=== PATIENT | male | born 1980 | race Caucasian/White ===

== ENCOUNTER 2016-10-06 10:09 | Outpatient (CLI) | payer MEDICAID | END 2016-10-06 10:10 | disposition home or self-care (01) | DX: Z79.899 Other long term (current) drug therapy (principal); Z13.9 Encounter for screening, unspecified ==

== ENCOUNTER 2017-02-26 20:30 | Emergency (ER) | payer MEDICAID ==
[2017-02-26] MEDS ORDERED: CYCLOBENZAPRINE 10 MG Prepack 2 PO PRN (22:22)
[2017-02-26] MEDS ORDERED: KETOROLAC 60 MG/2 ML VIAL IM STA (22:22)
[2017-02-26] MEDS ORDERED: HYDROcod/ACET 5/325 Prepack 6 PO STA (22:22)
[2017-02-26] MEDS ORDERED: HYDROcod/ACET 5/325 Prepack 6 PO ONE (22:24)
[2017-02-26] MEDS ORDERED: CYCLOBENZAPRINE 10 MG Prepack 2 PO ONE (22:24)
[2017-02-26] MEDS ORDERED: KETOROLAC 60 MG/2 ML VIAL ONE (22:24)
--- NOTE | 2017-02-26 22:29 | ED Physician Documentation ---
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 There is no associated radiation into the right leg, no weakness, numbness, urinary complaint, incontinence, saddle anesthesia, or fever.) Review of Systems Constitutional: denies: Fever, Chills Respiratory: denies: Dyspnea, Cough GI: denies: Abdominal Pain, Nausea, Vomiting PD PAST MEDICAL HISTORY - Past Medical History Cardiovascular: Hypertension Psych: ADD/ADHD - Past Surgical History Past Surgical History: No - Present Medications Home Medications: Ambulatory Orders Medication Instructions Recorded Confirmed HYDROcod/ACETAM 5/325 [[place] 5/325] 1 - 2 ea PO Q6H PRN #10 tablet 05/31/16 Methylphenidate HCl [Concerta] 30 mg PO DAILY 05/31/16 05/31/16 Sertraline [Zoloft] 100 mg PO DAILY 05/31/16 05/31/16 cloNIDine [Catapres] 0.3 mg PO DAILY 05/31/16 05/31/16 Cyclobenzaprine [Flexeril] 10 mg PO TID PRN #20 tablet 02/26/17 HYDROcod/ACETAM 5/325 [[place]iffard 5/325] 1 - 2 ea PO Q6H PRN #10 tablet 02/26/17 Ibuprofen [Motrin] 800 mg PO Q8H PRN #30 tablet 02/26/17 - Allergies Allergies/Adverse Reactions: Allergies Allergy/AdvReac Type Severity Reaction Status Date / Time No Known Drug Allergies Allergy Verified 02/26/17 20:46 - Social History Does the pt smoke?: No Smoking Status: Never smoker Does the pt drink ETOH?: Yes Does the pt have substance abuse?: No - Immunizations Immunizations are current?: Yes PD ED PE NORMAL - Vitals Vital signs reviewed: Yes - General General: Alert and oriented X 3, No acute distress - Abdomen Abdomen: Normal bowel sounds, Soft, Non tender, No organomegaly - Back Back: Other (Muscular tenderness of the right low back without midline tenderness of the spine. The patient has equal and normal Achilles and patellar reflexes bilaterally. Normal sensation in all areas of the legs. Patient denies saddle anesthesia. Normal strength in flexion-extension at the ankles, knees, and flexion of the hips.) - Neuro Neuro: Alert and oriented X 3, Normal speech - Psych Psych: Normal mood, Normal affect Results - Vitals Vitals: Vital Signs - 24 hr 02/26/17 20:43 Temperature 36.9 C Heart Rate 100 Respiratory 18 Rate Blood Pressure 157/112 H O2 Saturation 99 Oxygen O2 Source Room air PD MEDICAL DECISION MAKING - ED course ED course: This patient has seemingly uncomplicated musculoskeletal back pain. The patient has no "red flags." Specifically denies IV drug use, fevers, incontinence, saddle anesthesia. Spinal epidural abscess was considered, given that the patient has no fever, is not diabetic, has no spinal tenderness, does not use IV drugs, and has no bilateral neurologic symptoms, the diagnosis of spinal epidural abscess is considered exceedingly unlikely. Departure - Departure Disposition: Home, Self Care Clinical Impression: Back pain Qualifiers: Back pain location: low back pain Chronicity: acute Back pain laterality: right Sciatica presence: without sciatica Qualified Code(s): M54.5 - Low back pain Condition: Good Record reviewed to determine appropriate education?: Yes Instructions: ED Neck Back Pain General Prescriptions: Cyclobenzaprine [Flexeril] 10 mg PO TID PRN #20 tablet PRN Reason: Pain Ibuprofen [Motrin] 800 mg PO Q8H PRN #30 tablet PRN Reason: PAIN &/OR FEVER HYDROcod/ACETAM 5/325 [Piffard 5/325] 1 - 2 ea PO Q6H PRN #10 tablet PRN Reason: Pain Comments: Call your doctor to arrange a follow-up appointment, make the next available appointment. In the interim, return anytime if worse or if new symptoms develop. Do not drink or drive while taking narcotic pain medication. Note that many narcotic pain relievers also contain Tylenol/acetaminophen. Please ensure that your total dose of acetaminophen from all sources does not exceed 3 g (3000 mg) per day. You may get constipated while on this medication. Take a stool softener such as Colace twice a day while you are on it. Also add an [id number] laxative such as senna or MiraLAX on any day that you do not have a bowel movement. If you received a narcotic pain medication or sedative while in the emergency department, do not drive for the next 24 hours. Your blood pressure was elevated today on check into the emergency department. This does not mean that you have hypertension, it is a common phenomenon to come to the emergency department and have elevated blood pressure. I recommend that she see her primary care physician within the week to have it rechecked when you are feeling better. Forms: Activity restrictions
[2017-02-26 22:44] VITALS: BP 130/86
== END 2017-02-26 22:43 | disposition home or self-care (01) ==
LOC: ED 20:30
DX: M54.5 Low back pain (principal); I10 Essential (primary) hypertension
CPT/HCPCS: 96372; 99283

== ENCOUNTER 2017-08-31 12:24 | Emergency (ER) | payer OTHER, MEDICAID ==
[2017-08-31] MEDS ORDERED: IBUPROFEN 800 MG TABLET PO STA (12:47)
--- NOTE | 2017-08-31 12:48 | ED Physician Documentation ---
PD HPI LOWER EXT INJURY - Stated complaint Stated Complaint: L ANKLE PX - Chief complaint Chief Complaint: Ext Problem - History obtained from History obtained from: Patient - History of Present Illness PD HPI LOW EXT INJURY LOCATION: Left, Ankle Type of injury: Other (Inversion injury at work today, he can walk but barely. No other injuries.) Review of Systems Constitutional: reports: Reviewed and negative Cardiac: reports: Chest pain / pressure Respiratory: reports: Reviewed and negative PD PAST MEDICAL HISTORY - Past Medical History Cardiovascular: Hypertension Psych: ADD/ADHD - Past Surgical History Past Surgical History: No - Present Medications Home Medications: Ambulatory Orders Medication Instructions Recorded Confirmed cloNIDine [Catapres] 0.3 mg PO DAILY 05/31/16 05/31/16 HYDROcod/ACETAM 5/325 [[place] 5/325] 1 - 2 ea PO Q6H PRN #7 tablet 08/31/17 Ibuprofen [Motrin] 800 mg PO Q8H PRN #30 tablet 08/31/17 - Allergies Allergies/Adverse Reactions: Allergies Allergy/AdvReac Type Severity Reaction Status Date / Time No Known Drug Allergies Allergy Verified 08/31/17 12:34 - Social History Does the pt smoke?: No Smoking Status: Never smoker Does the pt drink ETOH?: Yes Does the pt have substance abuse?: No - Immunizations Immunizations are current?: Yes PD ED PE NORMAL - Vitals Vital signs reviewed: Yes - General General: Alert and oriented X 3, No acute distress - Extremities Extremities: Other (Left ankle is swollen and tender over the lateral malleolus and just proximal to that as well as the ATFL. There is also some tenderness over the anterior joint line. Achilles function is intact. There is no foot tenderness or proximal fibular tenderness. He has normal pedal pulses and sensation.) - Neuro Neuro: Alert and oriented X 3, Normal speech - Psych Psych: Normal mood, Normal affect Results - Vitals Vitals: Vital Signs - 24 hr 08/31/17 12:32 Temperature 37.4 C Heart Rate 92 Respiratory 18 Rate Blood Pressure 168/87 H O2 Saturation 98 Oxygen O2 Source Room air - Rads (name of study) L ankle 3v Radiology: EMP read contemporaneously (NAD, x STS) Departure - Departure Disposition: 01 Home, Self Care Clinical Impression: Left ankle sprain Qualifiers: Encounter type: initial encounter Involved ligament of ankle: anterior talofibular ligament Qualified Code(s): S93.492A - Sprain of other ligament of left ankle, initial encounter Condition: Good Record reviewed to determine appropriate education?: Yes Instructions: ED Sprain Ankle W X Ray Prescriptions: HYDROcod/ACETAM 5/325 [[place] 5/325] 1 - 2 ea PO Q6H PRN #7 tablet PRN Reason: Pain Ibuprofen [Motrin] 800 mg PO Q8H PRN #30 tablet PRN Reason: PAIN &/OR FEVER Comments: Recheck with your doctor in 1 week if not better. Ice and elevate for the next few days. Your blood pressure was elevated today on check into the emergency department. This does not mean that you have hypertension, it is a common phenomenon to come to the emergency department and have elevated blood pressure. I recommend that you see your primary care physician within the week to have it rechecked when you are feeling better. Forms: Activity restrictions
--- NOTE | 2017-08-31 13:20 | XRAY Report ---
EXAM: LEFT ANKLE RADIOGRAPHY EXAM DATE: 08/31/2017 01:15 PM. CLINICAL HISTORY: Trauma. COMPARISON: None. TECHNIQUE: 3 views. FINDINGS: Bones: Normal alignment. No fractures or bone lesions. Joints: no effusion. No subluxations. The ankle mortise is normally aligned. Soft Tissues: There is lateral soft tissue swelling. IMPRESSION: Lateral soft tissue swelling. No acute bone findings. [facility] Referring Provider Line: [phone] SITE ID: [id number]
[2017-08-31 13:51] VITALS: BP 135/92
== END 2017-08-31 13:47 | disposition home or self-care (01) ==
LOC: ED 12:24
DX: S93.492A Sprain of other ligament of left ankle, initial encounter (principal); X50.1XXA Overexertion from prolonged static or awkward postures, initial encounter; Y93.01 Activity, walking, marching and hiking; Y92.89 Other specified places as the place of occurrence of the external cause; Y99.0 Civilian activity done for income or pay; I10 Essential (primary) hypertension
CPT/HCPCS: 1040M; 73610; 99283; A9270

== ENCOUNTER 2018-04-02 18:32 | Emergency (ER) | payer MEDICAID ==
--- NOTE | 2018-04-02 19:15 | ED Physician Documentation ---
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 No: Out of meds Improved by: Inhaler/neb Worsened by: Exertion, Coughing Associated symptoms: Wheezing. No: Fever, Cough Similar symptoms before: Diagnosis (asthma) Recently seen: Not recently seen Review of Systems Constitutional: denies: Fever, Chills Nose: reports: Congestion, Sinus pressure / pain. denies: Rhinorrhea / runny nose Throat: denies: Sore throat Cardiac: denies: Chest pain / pressure, Palpitations, Pedal edema, Calf pain Respiratory: reports: Dyspnea, Cough, Wheezing. denies: Hemoptysis GI: denies: Nausea, Vomiting, Diarrhea Skin: denies: Rash, Lesions Musculoskeletal: denies: Extremity swelling Neurologic: denies: Difficulty speaking, Near syncope PD PAST MEDICAL HISTORY - Past Medical History Past Medical History: Yes Cardiovascular: Hypertension Respiratory: Asthma Psych: ADD/ADHD - Past Surgical History Past Surgical History: No - Present Medications Home Medications: Ambulatory Orders Medication Instructions Recorded Confirmed cloNIDine [Catapres] 0.3 mg PO DAILY 05/31/16 05/31/16 Albuterol Sulf [Ventolin Hfa 1 - 2 puffs INH Q4HR PRN 04/02/18 04/02/18 Inhaler] Albuterol Sulf [Ventolin Hfa 2 - 3 puffs INH Q4HR PRN #1 inhaler 04/02/18 Inhaler] Cetirizine [ZyrTEC] 10 mg PO DAILY #20 tablet 04/02/18 Dexamethasone [Decadron] 4 mg PO DAILY #7 tablet 04/02/18 Melatonin 10 mg PO QPM PRN 04/02/18 04/02/18 - Allergies Allergies/Adverse Reactions: Allergies Allergy/AdvReac Type Severity Reaction Status Date / Time No Known Drug Allergies Allergy Verified 04/02/18 18:38 - Social History Does the pt smoke?: No Smoking Status: Never smoker Does the pt drink ETOH?: Yes Does the pt have substance abuse?: Yes Substance Use and Type: Marijuana - Immunizations Immunizations are current?: Yes PD ED PE NORMAL - Vitals Vital signs reviewed: Yes - General General: Alert and oriented X 3, No acute distress, Well developed/nourished - HEENT HEENT: Ears normal, Pharynx benign - Neck Neck: Supple, no meningeal sign, No adenopathy - Cardiac Cardiac: RRR, No murmur, No rub - Respiratory Respiratory: No: Clear bilaterally (no coarse sounds but has diffuse exp wheezing. ) - Abdomen Abdomen: Soft, Non tender - Back Back: No CVA TTP - Derm Derm: Normal color, Warm and dry - Extremities Extremities: No edema, No calf tenderness / cord - Neuro Neuro: Alert and oriented X 3, No motor deficit, Normal speech Results - Vitals Vitals: Oxygen O2 Source Room air PD MEDICAL DECISION MAKING - ED course Complexity details: re-evaluated patient (improved moderately with neb treatment ), considered differential, d/w patient - Sepsis Event Vital Signs: Oxygen O2 Source Room air Departure - Departure Disposition: 01 Home, Self Care Clinical Impression: Dyspnea Qualifiers: Dyspnea type: shortness of breath Qualified Code(s): R06.02 - Shortness of breath Asthma exacerbation Qualifiers: Asthma severity: mild Asthma persistence: intermittent Qualified Code(s): J45.21 - Mild intermittent asthma with (acute) exacerbation Condition: Stable Record reviewed to determine appropriate education?: Yes Instructions: ED Reactive Airway Disease Follow-Up: Carlos Laureano PA-C [Primary Care Provider] - Prescriptions: Albuterol Sulf [Ventolin Hfa Inhaler] 2 - 3 puffs INH Q4HR PRN #1 inhaler PRN Reason: Shortness Of Air/Wheezing Cetirizine [ZyrTEC] 10 mg PO DAILY #20 tablet Dexamethasone [Decadron] 4 mg PO DAILY #7 tablet Comments: Use the ureter and albuterol inhaler 2-4 puffs every 4-6 hours if needed for trouble breathing. Use the Decadron steroid daily for the next 5-7 days. Add cetirizine antihistamine if there is some allergy component to it. Use that daily for the next week or so. Recheck if not improving over the next day or 2. Return if worsening symptoms. Forms: Activity restrictions Discharge Date/Time: 04/02/18 20:10
[2018-04-02] MEDS ORDERED: ALBUTEROL NEB 2.5 MG/3 ML INH STA (19:22)
[2018-04-02] MEDS ORDERED: CETIRIZINE 10 MG TABLET PO STA (19:22)
[2018-04-02] MEDS ORDERED: DEXAMETHASONE 10 MG/ML VIAL PO STA (19:22)
[2018-04-02] MEDS ORDERED: CHERRY SYRUP 10 ML UDC PO ONE (19:27)
[2018-04-02 19:57] VITALS: BP 139/86
== END 2018-04-02 20:10 | disposition home or self-care (01) ==
LOC: ED 18:32
DX: J45.21 Mild intermittent asthma with (acute) exacerbation (principal); I10 Essential (primary) hypertension; J45.909 Unspecified asthma, uncomplicated; F90.9 Attention-deficit hyperactivity disorder, unspecified type
CPT/HCPCS: 94640; 99283; A9270

== ENCOUNTER 2018-07-02 13:53 | Outpatient (CLI) | payer MEDICAID | END 2018-07-02 13:54 | disposition home or self-care (01) | LOC: SC 13:53 | PROVIDERS: ATTEND Internal Medicine Pulmonary Disease | DX: G47.10 Hypersomnia, unspecified (principal); G47.8 Other sleep disorders; R41.89 Other symptoms and signs involving cognitive functions and awareness | CPT/HCPCS: 99203; 99212 ==

== ENCOUNTER 2018-08-10 20:21 | Outpatient (CLI) | payer MEDICAID | END 2018-08-10 20:22 | disposition home or self-care (01) | LOC: SC 20:21 | PROVIDERS: ATTEND Internal Medicine Pulmonary Disease | DX: R06.83 Snoring (principal); G47.61 Periodic limb movement disorder | CPT/HCPCS: 95810 ==

== ENCOUNTER 2018-09-10 13:06 | Outpatient (CLI) | payer MEDICAID | END 2018-09-10 13:07 | disposition home or self-care (01) | LOC: SC 13:06 | PROVIDERS: ATTEND Internal Medicine Pulmonary Disease | DX: G47.00 Insomnia, unspecified (principal) | CPT/HCPCS: 99212; 99213 ==

== ENCOUNTER 2019-03-08 08:00 | Outpatient (CLI) | payer MEDICAID ==
[2019-03-08 13:01] LABS: BASOPHILS % (AUTO) 0.6 %; EOSINOPHILS # (AUTO) 0.2 10^3/uL (0.0-0.7); EOSINOPHILS % (AUTO) 3.7 %; HGB - HEMOGLOBIN 14.2 g/dL (14.0-18.0); LYMPHOCYTES # (AUTO) 1.8 10^3/uL (1.5-3.5); LYMPHOCYTES % (AUTO) 35.7 %; MEAN CORPUSCULAR HEMOGLOBIN 29.5 pg (27.0-31.0); MEAN CORPUSCULAR HGB CONC 32.8 g/dL (32.0-36.0); MEAN PLATELET VOLUME 10.9 fL (7.4-11.4); MONOCYTES # (AUTO) 0.5 10^3/uL (0.0-1.0); NEUTROPHILS # (AUTO) 2.4 10^3/uL (1.5-6.6); NEUTROPHILS % (AUTO) 48.8 %; PLT - PLATELET COUNT 217 10^3/uL (130-450); RED BLOOD COUNT 4.81 10^6/uL (4.70-6.10); RED CELL DISTRIBUTION WIDTH 12.1 % (12.0-15.0); WHITE BLOOD COUNT 4.9 x10^3/uL (4.8-10.8)
[2019-03-08 17:34] LABS: ALBUMIN 4.2 g/dL (3.2-5.5); ALBUMIN/GLOBULIN RATIO 1.4 (1.0-2.2); ALKALINE PHOSPHATASE 47 IU/L (42-121); ALT ALANINE AMINOTRANSFERASE 25 IU/L (10-60); AST ASPARTATE AMINOTRANSFERASE 25 IU/L (10-42); BILIRUBIN,TOTAL 1.3 mg/dL (0.2-1.0); BUN - BLOOD UREA NITROGEN 16 mg/dL (6-20); CALCIUM 9.2 mg/dL (8.5-10.3); CARBON DIOXIDE - CO2 25 mmol/L (21-32); CHLORIDE 107 mmol/L (101-111); CHOL/HDL RATIO 2.3 (<5.0); CHOLESTEROL 135 mg/dL; CREATININE 0.9 mg/dL (0.6-1.2); GFR - MDRD 95 (>89); GLUCOSE 97 mg/dL (70-100); HDL CHOLESTEROL 59 mg/dL; SODIUM 140 mmol/L (135-145); TOTAL PROTEIN 7.1 g/dL (6.7-8.2)
== END 2019-03-08 08:01 | disposition home or self-care (01) ==
LOC: LAB.N 08:00
PROVIDERS: ATTEND Physician Assistant Medical
DX: I10 Essential (primary) hypertension (principal); B35.1 Tinea unguium
CPT/HCPCS: 36415; 80053; 80061; 83721; 85025

== ENCOUNTER 2019-03-09 13:01 | Outpatient (CLI) | payer MEDICAID ==
--- NOTE | 2019-03-11 11:39 | Ultrasound Report ---
Reason: ABDOMINAL MASS, LEFT LOWER QUADRANT Procedure Date: 03/09/2019 Accession Number: [id number] / [id number] Procedure: US - Abdomen Limited CPT Code: FULL RESULT: EXAM: ABDOMEN ULTRASOUND LIMITED. EXAM DATE: 03/09/2019 01:23 PM. CLINICAL HISTORY: Abdominal mass, left lower quadrant. COMPARISON: CHEST ANGIO 05/31/2016 2:59 PM. ABDOMEN/PELVIS W/ 08/22/2014 5:17 PM. TECHNIQUE: Real-time scanning was performed with static images obtained. FINDINGS: Palpable finding in the left upper quadrant abdominal wall corresponds to encapsulate soft tissue avascular mass measuring 2.6 x 0.9 x 4.4 cm. This mass is isoechoic to the adjacent subcutaneous soft tissues. No obvious hernia. No adenopathy or collection. IMPRESSION: 1. Palpable finding in the left upper quadrant abdominal wall corresponds to an avascular solid 2.6 x 0.9 x 4.4 cm mass isoechoic to the adjacent subcutaneous soft tissues. Statistically, this probably represents a lipoma. 2. If lesion increases in size or become painful, recommend MRI with and without contrast. 3. No concerning adenopathy or collection seen. [facility]
== END 2019-03-09 13:02 | disposition home or self-care (01) ==
LOC: DI 13:01
PROVIDERS: ATTEND Physician Assistant Medical
DX: R19.02 Left upper quadrant abdominal swelling, mass and lump (principal)
CPT/HCPCS: 76705

== ENCOUNTER 2019-05-17 07:44 | Day surgery (SDC) | payer MEDICAID ==
[2019-05-17] MEDS ORDERED: CEFAZOLIN SODIUM IN 0.9 % NACL 2 GM/100 ML BAG IV ONE (08:00)
[2019-05-17] MEDS ORDERED: LACTATED RINGERS 1,000 ML IV ONE (08:19)
--- NOTE | 2019-05-17 08:34 | ANESTHESIA ---
Pre-Anesthesia VS, & Labs - Diagnosis L upper abdominal wall mass - Procedure Excision, L upper abdominal wall mass Vital Signs: Temp Pulse Resp BP Pulse Ox 37 C 67 18 137/83 H 100 05/17/19 07:50 05/17/19 07:50 05/17/19 07:50 05/17/19 07:50 05/17/19 07:50 Height 6 ft Weight (kg) 106 kg Body Mass Index 48.8 - NPO >8 hours - Lab Results Current Lab Results: 03/08 results Home Medications and Allergies Home Medications: Ambulatory Orders Ibuprofen [Motrin] 600 mg PO Q6H PRN 05/16/19 Lisinopril 10 mg PO DAILY 05/16/19 cloNIDine [Catapres] 0.3 mg PO QPM 05/31/16 Albuterol Sulf [Ventolin Hfa Inhaler] 1 - 2 puffs INH Q4HR PRN 04/02/18 Ibuprofen [Motrin] 600 mg PO Q6H PRN 05/16/19 Lisinopril 10 mg PO DAILY 05/16/19 Allergies/Adverse Reactions: Allergies Allergy/AdvReac Type Severity Reaction Status Date / Time No Known Drug Allergies Allergy Verified 04/02/18 18:38 Anes History & Medical History - Anesthetic History Anesthesia Complications: reports: No previous complications Family history of Anesthesia Complications: Denies Family history of Malignant Hyperthermia: Denies - Medical History Cardiovascular: reports: Hypertension Pulmonary: reports: Asthma Gastrointestinal: reports: GERD Urinary: reports: None Musculoskeletal: reports: Chronic back pain Endocrine/Autoimmune: reports: None Skin: reports: None Smoking Status: Never smoker Psychosocial: reports: Alcohol (2-3/week), Cannabis (edibles) - Other History Other History: "Local anesthesia is always slow to set up" Exam General: Alert, Oriented x3, Cooperative Dental: WNL Mouth Opening: Greater than 4 Fingerbreadths Neck Mobility: Normal Mallampati classification: I Thyromental Distance: greater than 6 cm Respiratory: Lungs clear, Normal breath sounds, No respiratory distress Cardiovascular: Regular rate Neurological: Normal speech Mental/Cognitive Status: Alert/Oriented X3, Normal for patient Cognitive Status: Within normal limits Plan Anesthesia Type: General (back-up), MAC Consent for Procedure(s) Verified and Reviewed: Yes Code Status: Attempt Resuscitation ASA classification: 2-Mild systemic disease Is this case an emergency?: No
[2019-05-17] MEDS ORDERED: BUPIVACAINE 0.5% PF 10 ML VIAL ONE (09:09)
[2019-05-17] MEDS ORDERED: HYDROcod/ACETAM 5/325 MG TABLET PO PRN (10:43)
[2019-05-17] MEDS ORDERED: ONDANSETRON 4 MG/2 ML VIAL IVP PRN (10:43)
[2019-05-17] MEDS ORDERED: HYDROmorphone 0.5 MG/0.5 ML SYRINGE IVP PRN (10:43)
[2019-05-17] MEDS ORDERED: KETOROLAC 30 MG/ML VIAL IVP PRN (10:47)
[2019-05-17] MEDS ORDERED: ACETAMINOPHEN 1,000 MG/100 ML 100 ML IV ONE ×2 (10:47→11:04)
--- NOTE | 2019-05-17 10:48 | OPERATIVE REPORT ---
Operative Report - General Procedure Date: 05/17/19 Planned Procedure: Excision of left upper quadrant subcutaneous mass Pre-Op Diagnosis: Left upper quadrant subcutaneous mass (lipoma suspected) Procedure Performed: Excision of left upper quadrant subcutaneous mass Post Op Diagnosis: Same - Procedure Note Primary Surgeon: Joshua Veloz MD Anesthesia Provider: Anaid Madrid CRNA Anesthesia Technique: Local (30 mL of half percent Marcaine), MAC IV Fluids (mL): 600 Estimated Blood Loss (mL): 5 Drain/Tube Type: Other (None) Complications: None - Other Other Information/Narrative: OPERATIVE DESCRIPTION/REPORT: After verbal and written informed consent was obtained detailing the risks of infection, bleeding requiring transfusion with its risks, nerve injury, and , and after I met with the patient confirming the surgery and the site of the surgery, the patient was brought to the operative suite and placed supine on the operating table. Great care was taken to avoid pressure points to prevent pressure necrosis or nerve injury. Monitoring devices were applied along with TEDs and pneumatic compressive stockings (to prevent DVT). The patient received preoperative antibiotics for surgical prophylaxis. Anaid Madrid CRNA sedated and anesthetized the patient for the entire procedure. The patient was prepped and draped in the usual sterile manner. With the patient draped my initials were clearly visible. A "time in" then confirmed that the patient was identified with 3 identifiers (name, date and medical record number), the history and physical was in the chart, the signed consent confirming the procedure was in the chart, the patient was in the correct position, the aforementioned prophylactic measures were in place or given, we had the correct personnel and equipment to complete the procedure and that anesthesia, surgery and nursing were given an opportunity to express any concerns. With the agreement of everyone in the room, we proceeded with the operation. The skin overlying the lesion was anesthetized using half percent Marcaine. A transverse incision 4 cm overlying the lesion was made and dissection down to the lesion was completed using a combination of scalpel, blunt dissection, and Metzenbaum scissors. The lesion was from the surrounding structures and excised in total. The lesion was lipomatous and had fit into various "nooks and crannies" in the left upper quadrant. It was a tedious yet meticulous dissection of all of the lipomatous pieces. It did not come out in one solid piece. Meticulous hemostasis was present and the subcutaneous tissues were approximated with a 3-0 Vicryl simple suture and the skin incision was approximated with a running 4-0 subcuticular Monocryl. At this point a time out was performed that confirmed that all the counts were correct, the procedure that was performed, the blood loss, the IV fluids administered, and the patients condition. Having tolerated the procedure well, the patient was subsequently extubated and taken to recovery room in good and stable condition. It is very important to note that the reason this procedure was done in the operating room is that the patient is resistant to local anesthesia, but despite this I used full 30 mL of half percent Marcaine in the hopes that it would work. Dragon disclaimer: This document was created in part using voice recognition technology. Because of the inherent limitations of the system ([employer] ([employer] user manual states that the licensee understands that speech recognition is a statistical process and that recognition errors are inherent in the process), occasional same sounding word substitutions and grammatical errors do occur and persist despite proofreading. Please read this document for context.
[2019-05-17] MEDS ORDERED: KETOROLAC 30 MG/ML VIAL ONE (11:03)
[2019-05-17] MEDS ORDERED: HYDROmorphone 0.5 MG/0.5 ML SYRINGE ONE (11:05)
[2019-05-17 11:40] VITALS: BP 122/81
[2019-05-17] MEDS ORDERED: ONDANSETRON 4 MG/2 ML VIAL ONE (11:48)
== END 2019-05-17 07:45 | disposition home or self-care (01) ==
LOC: SDS 07:44
PROVIDERS: ATTEND Surgery
PROC: 0JB80ZZ Excision of Abdomen Subcutaneous Tissue and Fascia, Open Approach (ICD-10-PCS; principal; 2019-05-17 09:00)
DX: D17.1 Benign lipomatous neoplasm of skin and subcutaneous tissue of trunk (principal); I10 Essential (primary) hypertension; J45.909 Unspecified asthma, uncomplicated; Z79.899 Other long term (current) drug therapy; Z87.891 Personal history of nicotine dependence
CPT/HCPCS: 11404; 12032; J0131; J0690; J1170; J7120

== ENCOUNTER 2020-07-16 21:12 | Outpatient (CLI) | payer MEDICAID | END 2020-07-16 21:13 | disposition home or self-care (01) | LOC: COV 21:12 | PROVIDERS: ATTEND Surgery | DX: Z01.812 Encounter for preprocedural laboratory examination (principal); D17.1 Benign lipomatous neoplasm of skin and subcutaneous tissue of trunk; Z20.828 Contact with and (suspected) exposure to other viral communicable diseases ==

== ENCOUNTER 2020-07-21 08:47 | Day surgery (SDC) | payer MEDICAID ==
[2020-07-21] MEDS ORDERED: LACTATED RINGERS 1,000 ML IV ONE ×2 (09:27→11:35)
--- NOTE | 2020-07-21 09:47 | ANESTHESIA ---
Pre-Anesthesia VS, & Labs - Diagnosis left chest lipoma - Procedure excision left chest lipoma Vital Signs: Temp Pulse Resp BP Pulse Ox 36.2 C L 91 18 126/76 99 07/21/20 09:04 07/21/20 09:04 07/21/20 09:04 07/21/20 09:04 07/21/20 09:04 Height: 6 ft Weight (kg): 116 kg Body Mass Index: 34.7 BMI Classification: Obese - NPO >8 hours - Lab Results Lab results reviewed: No Home Medications and Allergies Home Medications: Ambulatory Orders Escitalopram Oxalate [Lexapro] 20 mg PO DAILY 07/13/20 Famotidine [Acid-Pep] 20 mg PO DAILY 07/13/20 Mirtazapine [Remeron] 15 mg PO QPM 07/13/20 Omeprazole 20 mg PO BID 07/13/20 Prazosin HCl [Minipress] 5 mg PO QPM 07/13/20 Sucralfate [Carafate] 1 gm PO ACHS 07/13/20 cloNIDine [Catapres] 0.3 mg PO QPM 05/31/16 lisinopriL [Lisinopril] 10 mg PO DAILY 05/16/19 Escitalopram Oxalate [Lexapro] 20 mg PO DAILY 07/13/20 Famotidine [Acid-Pep] 20 mg PO DAILY 07/13/20 Mirtazapine [Remeron] 15 mg PO QPM 07/13/20 Omeprazole 20 mg PO BID 07/13/20 Prazosin HCl [Minipress] 5 mg PO QPM 07/13/20 Sucralfate [Carafate] 1 gm PO ACHS 07/13/20 Allergies/Adverse Reactions: Allergies Allergy/AdvReac Type Severity Reaction Status Date / Time No Known Drug Allergies Allergy Verified 04/02/18 18:38 Anes History & Medical History - Anesthetic History Anesthesia Complications: reports: No previous complications Family history of Anesthesia Complications: Denies Family history of Malignant Hyperthermia: Denies - Medical History Cardiovascular: reports: Hypertension Pulmonary: reports: Asthma Gastrointestinal: reports: GERD Urinary: reports: None Musculoskeletal: reports: Chronic back pain Endocrine/Autoimmune: reports: None Skin: reports: None Smoking Status: Never smoker Psychosocial: reports: Alcohol (occasioinal), Cannabis (edibles) History of Cancer?: No - Surgical History General: Other Exam General: Alert, Oriented x3, Cooperative Respiratory: Lungs clear, Normal breath sounds, No respiratory distress Cardiovascular: Regular rate Neurological: Normal speech Mental/Cognitive Status: Alert/Oriented X3, Normal for patient Cognitive Status: Within normal limits Plan Anesthesia Type: MAC Consent for Procedure(s) Verified and Reviewed: Yes Code Status: Attempt Resuscitation ASA classification: 2-Mild systemic disease Is this case an emergency?: No
[2020-07-21] MEDS ORDERED: ePHEDrine 50 MG/ML VIAL IVP PRN (09:57)
[2020-07-21] MEDS ORDERED: ATROPINE ABBOJECT 1 MG/10 ML SYRINGE IVP PRN (09:57)
[2020-07-21] MEDS ORDERED: HYDROmorphone 0.5 MG/0.5 ML SYRINGE IVP PRN (09:57)
[2020-07-21] MEDS ORDERED: fentaNYL 100 MCG/2 ML VIAL IVP PRN (09:57)
[2020-07-21] MEDS ORDERED: ONDANSETRON 4 MG/2 ML VIAL IVP PRN (09:57)
[2020-07-21] MEDS ORDERED: METOCLOPRAMIDE 10 MG/2 ML VIAL IVP PRN (09:57)
[2020-07-21] MEDS ORDERED: MORPHINE 2 MG/ML CARPUJECT IVP PRN (09:57)
[2020-07-21] MEDS ORDERED: NALOXONE 0.4 MG/ML VIAL IVP PRN (09:57)
[2020-07-21] MEDS ORDERED: LACTATED RINGERS 1,000 ML IV SCH (10:00)
[2020-07-21] MEDS ORDERED: BUPIVACAINE 0.25%-EPI 1:200000 PF 30 ML VIAL ONE (10:22)
[2020-07-21] MEDS ORDERED: BUPIVACAINE 0.25% PF 30 ML VIAL ONE (10:22)
[2020-07-21] MEDS ORDERED: LIDOCAINE 1% 50 ML MDV ONE (10:24)
[2020-07-21] MEDS ORDERED: MIDAZOLAM 2 MG/2 ML VIAL IVP ONE (10:42)
[2020-07-21] MEDS ORDERED: GLYCOPYRROLATE 1 MG/5 ML VIAL IVP ONE (10:42)
[2020-07-21] MEDS ORDERED: PROPOFOL 200 MG/20 ML VIAL IVP ONE (10:42)
[2020-07-21] MEDS ORDERED: ONDANSETRON 4 MG/2 ML VIAL IVP ONE (10:42)
[2020-07-21] MEDS ORDERED: KETAMINE 500 MG/10 ML VIAL IVP ONE (10:42)
[2020-07-21] MEDS ORDERED: BUPIVACAINE 0.25% PF 30 ML VIAL SUBQ ONE ×2 (11:08)
[2020-07-21] MEDS ORDERED: LIDOCAINE 1% 50 ML MDV SUBQ ONE ×2 (11:09)
[2020-07-21] MEDS ORDERED: oxyCODONE 5 MG TABLET PO PRN (11:41)
--- NOTE | 2020-07-21 11:48 | OPERATIVE REPORT ---
Operative Report - General Procedure Date: 07/21/20 Planned Procedure: excision left chest recurrent lipoma Pre-Op Diagnosis: recurrent left chest lipoma Procedure Performed: excision left chest 6 cm lipoma Post Op Diagnosis: same - Procedure Note Primary Surgeon: leatha richard Anesthesia Technique: Local, MAC Pathology: sent lipoma Drain/Tube Type: Other (none) Complications: none
[2020-07-21 12:00] VITALS: BP 119/88
--- NOTE | 2020-07-21 12:57 | ANESTHESIA POST OP EVALUATION ---
Anesthesia Post Eval - Post Anesthesia Eval Vitals: Last Vital Signs Temp 36.2 C L 07/21/20 09:04 Pulse 66 07/21/20 11:59 Resp 16 07/21/20 11:59 BP 119/88 H 07/21/20 11:59 Pulse Ox 97 07/21/20 11:59 CV Function Including HR & BP: positive: Stable Pain Control: positive: Satisfactory Nausea & Vomiting: positive: Negative Mental Status: positive: Baseline Respiratory Status: Airway Patent Hydration Status: Satisfactory Anesthesia Complications: positive: None
--- NOTE | 2020-07-21 13:07 | OPERATIVE REPORT ---
DATE OF SERVICE: 07/21/2020 Physician: Franko Azar MD PREOPERATIVE DIAGNOSIS: Recurrent lipoma, left chest wall. POSTOPERATIVE DIAGNOSIS: Recurrent lipoma, left chest wall measuring approximately 4 x 6 cm. PROCEDURE PERFORMED 1. Excision of left chest wall lipoma. 2. Intermediate repair 6 cm incision. SURGEON: Franko Azar MD ACCOUNTS RECEIVABLE MANAGER: None. ANESTHESIA: Monitored anesthesia care, IV sedation, local anesthesia. COMPLICATIONS: None. SPECIMEN: Sent for pathology. ESTIMATED BLOOD LOSS: 5 mL or less. DRAINS: None. COMPLICATIONS: None. FINDINGS: Approximately 4 x 6 cm lipoma right at the rib margin. INDICATIONS FOR PROCEDURE: The patient is a 39-year-old gentleman with history of left chest wall lipoma excision approximately one year earlier. He has developed a symptomatic recurrence with pain and tenderness. On review of the operative report, the prior lipoma had finger-like projections, or it was very lobulated. He has a palpable recurrence approximately 4 cm caudad and 4 cm left lateral. DETAILS OF PROCEDURE: The patient was properly identified and brought to the operating room and placed in supine position. Monitored anesthesia care was given. He was prepped and draped in a sterile fashion. Antibiotics were not given. Local anesthetic was given throughout the procedure. A 6 cm incision was made directly over the palpable mass and in the direction of Winnie's lines. Dissection proceeded down to the lipoma. It had a smooth, glistening border. It was removed in its entirety and down towards fascia. Hemostasis was assured. Deep subcutaneous tissue was closed with interrupted 2-0 Vicryl suture. Buried interrupted subdermal 3-0 Vicryl sutures were then placed. Skin was closed with a running 4-0 Monocryl subcuticular suture. Steri-Strips and dressing were applied. He tolerated the procedure very well. TD: 07/21/2020 12:25 [facility]
== END 2020-07-21 08:48 | disposition home or self-care (01) ==
LOC: SDS 08:47
PROVIDERS: ATTEND Surgery
PROC: 0JB60ZZ Excision of Chest Subcutaneous Tissue and Fascia, Open Approach (ICD-10-PCS; 2020-07-21)
PROC: 0JQ60ZZ Repair Chest Subcutaneous Tissue and Fascia, Open Approach (ICD-10-PCS; principal; 2020-07-21 10:00)
DX: D17.1 Benign lipomatous neoplasm of skin and subcutaneous tissue of trunk (principal); I10 Essential (primary) hypertension; J45.909 Unspecified asthma, uncomplicated; E66.9 Obesity, unspecified; Z68.34 Body mass index [BMI] 34.0-34.9, adult
CPT/HCPCS: 11406; 12032; J7120

== ENCOUNTER 2020-08-10 08:00 | Outpatient (CLI) | payer MEDICAID ==
[2020-08-10 11:47] LABS: BASOPHILS % (AUTO) 0.4 %; EOSINOPHILS # (AUTO) 0.1 10^3/uL (0.0-0.7); EOSINOPHILS % (AUTO) 1.9 %; HGB - HEMOGLOBIN 15.8 g/dL (14.0-18.0); LYMPHOCYTES # (AUTO) 1.7 10^3/uL (1.5-3.5); LYMPHOCYTES % (AUTO) 23.7 %; MEAN CORPUSCULAR HGB CONC 33.3 g/dL (32.0-36.0); MEAN CORPUSCULAR VOLUME 90.1 fL (80.0-94.0); MEAN PLATELET VOLUME 10.9 fL (7.4-11.4); MONOCYTES # (AUTO) 0.5 10^3/uL (0.0-1.0); MONOCYTES % (AUTO) 7.6 %; NEUTROPHILS # (AUTO) 4.6 10^3/uL (1.5-6.6); PLT - PLATELET COUNT 217 10^3/uL (130-450); RED BLOOD COUNT 5.27 10^6/uL (4.70-6.10); RED CELL DISTRIBUTION WIDTH 12.4 % (12.0-15.0)
[2020-08-10 12:36] LABS: ALBUMIN 4.7 g/dL (3.2-5.5); ALBUMIN/GLOBULIN RATIO 1.5 (1.0-2.2); CALCIUM 9.5 mg/dL (8.5-10.3); TOTAL PROTEIN 7.9 g/dL (6.7-8.2)
== END 2020-08-10 08:01 | disposition home or self-care (01) ==
LOC: LAB.WCP 08:00
PROVIDERS: ATTEND Internal Medicine
DX: K21.9 Gastro-esophageal reflux disease without esophagitis (principal)
CPT/HCPCS: 36415; 80053; 83690; 85025

== ENCOUNTER 2020-09-18 18:55 | Outpatient (CLI) | payer MEDICAID | END 2020-09-18 18:56 | disposition home or self-care (01) | LOC: COV 18:55 | PROVIDERS: ATTEND Physician Assistant | DX: Z01.812 Encounter for preprocedural laboratory examination (principal); Z20.822 Contact with and (suspected) exposure to COVID-19 ==

== ENCOUNTER 2020-11-06 13:26 | Outpatient (CLI) | payer MEDICAID | END 2020-11-06 13:27 | disposition home or self-care (01) | LOC: COV 13:26 | PROVIDERS: ATTEND Surgery | DX: Z01.812 Encounter for preprocedural laboratory examination (principal); K21.00 Gastro-esophageal reflux disease with esophagitis, without bleeding; Z20.822 Contact with and (suspected) exposure to COVID-19 ==

== ENCOUNTER 2021-01-01 19:28 | Outpatient (CLI) | payer MEDICAID ==
--- NOTE | 2021-01-01 21:14 | Ultrasound Report ---
PROCEDURE: Abdomen Complete INDICATIONS: GALLBLADDER POLYP TECHNIQUE: Real-time scanning was performed of the abdominal and retroperitoneal organs, with image documentatio n. COMPARISON: None. FINDINGS: Liver: Liver is normal in size and homogeneous in echotexture. Gallbladder: Gallbladder contains at least 5 small polyps, the largest of which measures 3.5 mm. Ther e is no shadowing stone. No gallbladder wall thickening. No pain on examination. Biliary ducts: Intrahepatic bile ducts are non-dilated. Extrahepatic bile duct caliber measures 4.1 mm. Normal is 6-7 mm or less in diameter, or 10 mm or less post-cholecystectomy. Pancreas: Visualized portions of the pancreas are sonographically normal. Spleen: Spleen is mildly enlarged, measuring 14.1 cm in diameter. Kidneys: Kidneys are normal in size and echotexture. Right kidney measures 13.1 cm long; left kidne y measures 12.3 cm long. No hydronephrosis or nephrolithiasis. No solid masses. Aorta: Visualized aorta is normal in caliber at less than 3 cm. Iliacs: Proximal common iliac arteries are normal in caliber at less than 2.5 cm. IVC: Intrahepatic inferior vena cava is patent. Miscellaneous: No free abdominal fluid. IMPRESSION: 1. Multiple gallbladder polyps. 2. Mild splenomegaly. Reviewed by: Julio Turpin MD on 01/01/2021 9:13 PM PDT Approved by: Julio Turpin MD on 01/01/2021 9:13 PM PDT Station ID: [id number]
== END 2021-01-01 19:29 | disposition home or self-care (01) ==
LOC: DI 19:28
PROVIDERS: ATTEND Physician Assistant
DX: K82.4 Cholesterolosis of gallbladder (principal); R16.1 Splenomegaly, not elsewhere classified

== ENCOUNTER 2021-02-01 08:00 | Outpatient (CLI) | payer MEDICAID | END 2021-02-01 23:59 | disposition home or self-care (01) | LOC: LAB.WCP 08:00 | PROVIDERS: ATTEND Internal Medicine | DX: R23.2 Flushing (principal) | CPT/HCPCS: 82570; 83497 ==

== ENCOUNTER 2021-03-30 09:28 | Outpatient (CLI) | payer MEDICAID ==
--- NOTE | 2021-03-30 10:46 | MRI Report ---
PROCEDURE: Brain W/O INDICATIONS: CHRONIC NAUSEA TECHNIQUE: Noncontrast axial T1 spin echo, axial T2 fast spin echo, sagittal and axial FLAIR, coronal T2 fast sp in echo, axial gradient echo, axial diffusion and ADC through the brain. COMPARISON: None. FINDINGS: Image quality: Excellent. CSF Spaces: Basal cisterns are patent. Within the posterior aspect of the posterior fossa, there is a 2.3 cm arachnoid cyst incidentally noted, as on series 401 image 8 and on series 501 image 8. Ventr icles are normal in size and shape. Brain: No intracranial masses or hemorrhage. Tobin/white matter interface is normal. Brainstem appe ars normal. Diffusion-weighted images demonstrate no acute ischemic insult. No chronic ischemic ins ults. Normal intravascular flow voids are present. Skull and face: Calvarium has normal marrow signal. Orbits appear normal. Sinuses: There is a mucous retention cyst seen within the inferior right maxillary sinus. Sinuses an d mastoids are otherwise clear. IMPRESSION: No imaging explanation is found for the patient's presenting symptoms. Incidental note is made of: Posterior fossa arachnoid cyst Right maxillary sinus mucus retention cyst Reviewed by: Arthur Hart MD on 03/30/2021 9:44 AM LUC[facility]A Approved by: Arthur Hart MD on 03/30/2021 9:44 AM LUCÍA Station ID: [id number]
== END 2021-03-30 09:29 | disposition home or self-care (01) ==
LOC: DI 09:28
PROVIDERS: ATTEND Internal Medicine
DX: R11.0 Nausea (principal)

== ENCOUNTER 2022-07-19 12:34 | Outpatient (CLI) | payer OTHER ==
[2022-07-19 18:06] LABS: BUN - BLOOD UREA NITROGEN 17 mg/dL (6-20); CALCIUM 9.5 mg/dL (8.5-10.3); CARBON DIOXIDE - CO2 30 mmol/L (21-32); CHLORIDE 100 mmol/L (101-111); CHOL/HDL RATIO 2.8 (<5.0); CHOLESTEROL 164 mg/dL; CREATININE 0.9 mg/dL (0.6-1.2); GFR - MDRD 93 (>89); GLUCOSE 96 mg/dL (70-100); HDL CHOLESTEROL 58 mg/dL; LDL CHOLESTEROL,CALCULATED 98 mg/dL; LDL/HDL RATIO 1.7 (<3.6); POTASSIUM 4.5 mmol/L (3.5-5.0); SODIUM 137 mmol/L (135-145); TRIGLYCERIDES 42 mg/dL; VLDL CHOLESTEROL 8 mg/dL
[2022-07-19 18:08] LABS: BASOPHILS # (AUTO) 0.1 10^3/uL (0.0-0.1); BASOPHILS % (AUTO) 0.6 %; EOSINOPHILS # (AUTO) 0.1 10^3/uL (0.0-0.7); EOSINOPHILS % (AUTO) 0.8 %; HCT - HEMATOCRIT 46.6 % (42.0-52.0); HGB - HEMOGLOBIN 15.1 g/dL (14.0-18.0); LYMPHOCYTES # (AUTO) 1.4 10^3/uL (1.5-3.5); MEAN CORPUSCULAR HEMOGLOBIN 29.4 pg (27.0-31.0); MEAN CORPUSCULAR HGB CONC 32.4 g/dL (32.0-36.0); MEAN CORPUSCULAR VOLUME 90.7 fL (80.0-94.0); MEAN PLATELET VOLUME 10.8 fL (7.4-11.4); MONOCYTES # (AUTO) 0.6 10^3/uL (0.0-1.0); MONOCYTES % (AUTO) 6.5 %; NEUTROPHILS # (AUTO) 7.2 10^3/uL (1.5-6.6); NEUTROPHILS % (AUTO) 76.9 %; PLT - PLATELET COUNT 253 10^3/uL (130-450); RED BLOOD COUNT 5.14 10^6/uL (4.70-6.10); RED CELL DISTRIBUTION WIDTH 12.5 % (12.0-15.0); WHITE BLOOD COUNT 9.3 x10^3/uL (4.8-10.8)
[2022-07-19 18:26] LABS: THYROID STIMULATING HORMONE 1.6 uIU/mL (0.34-5.60)
== END 2022-07-19 12:35 | disposition home or self-care (01) ==
LOC: LAB.N 12:34
PROVIDERS: ATTEND Internal Medicine
DX: I10 Essential (primary) hypertension (principal); F32.A Depression, unspecified
CPT/HCPCS: 36415; 80048; 80061; 83721; 84443; 85025

== ENCOUNTER 2023-06-26 12:20 | Outpatient (CLI) | payer OTHER ==
[2023-06-26 18:04] LABS: BASOPHILS % (AUTO) 0.6 %; EOSINOPHILS # (AUTO) 0.1 10^3/uL (0.0-0.7); EOSINOPHILS % (AUTO) 1.5 %; HCT - HEMATOCRIT 44.1 % (42.0-52.0); HGB - HEMOGLOBIN 14.5 g/dL (14.0-18.0); LYMPHOCYTES # (AUTO) 2.2 10^3/uL (1.5-3.5); MEAN CORPUSCULAR HEMOGLOBIN 29.6 pg (27.0-31.0); MEAN CORPUSCULAR HGB CONC 32.9 g/dL (32.0-36.0); MEAN PLATELET VOLUME 10.3 fL (7.4-11.4); MONOCYTES # (AUTO) 0.6 10^3/uL (0.0-1.0); MONOCYTES % (AUTO) 8.4 %; NEUTROPHILS # (AUTO) 4.2 10^3/uL (1.5-6.6); NEUTROPHILS % (AUTO) 58.2 %; PLT - PLATELET COUNT 228 10^3/uL (130-450); WHITE BLOOD COUNT 7.1 x10^3/uL (4.8-10.8)
[2023-06-26 18:18] LABS: ALBUMIN 4.4 g/dL (3.2-5.5); ALBUMIN/GLOBULIN RATIO 1.8 (1.0-2.2); ALKALINE PHOSPHATASE 53 IU/L (42-121); ALT ALANINE AMINOTRANSFERASE 21 IU/L (10-60); AST ASPARTATE AMINOTRANSFERASE 21 IU/L (10-42); BILIRUBIN,TOTAL 0.5 mg/dL (0.2-1.0); BUN - BLOOD UREA NITROGEN 13 mg/dL (6-20); CALCIUM 9.3 mg/dL (8.5-10.3); CARBON DIOXIDE - CO2 32 mmol/L (21-32); CHLORIDE 104 mmol/L (101-111); CHOL/HDL RATIO 2.8 (<5.0); CHOLESTEROL 164 mg/dL; CREATININE 1.1 mg/dL (0.6-1.3); GFR - MDRD 74 (>89); GLUCOSE 85 mg/dL (74-104); HDL CHOLESTEROL 58 mg/dL; LDL CHOLESTEROL,CALCULATED 94 mg/dL; LDL/HDL RATIO 1.6 (<3.6); POTASSIUM 3.7 mmol/L (3.5-4.5); SODIUM 140 mmol/L (135-145); TOTAL PROTEIN 6.8 g/dL (6.4-8.9); TRIGLYCERIDES 58 mg/dL (48-352); VLDL CHOLESTEROL 12 mg/dL
[2023-06-26 18:38] LABS: THYROID STIMULATING HORMONE 0.98 uIU/mL (0.34-5.60)
[2023-06-26 21:34] LABS: ESTIMATED AVERAGE GLUCOSE 103 mg/dL (70-100); HEMOGLOBIN A1c% 5.2 % (4.27-6.07)
== END 2023-06-26 12:21 | disposition home or self-care (01) ==
LOC: LAB.N 12:20
PROVIDERS: ATTEND Internal Medicine
DX: I10 Essential (primary) hypertension (principal); Z79.899 Other long term (current) drug therapy; F32.A Depression, unspecified
CPT/HCPCS: 36415; 80053; 80061; 83036; 83721; 84443; 85025

== ENCOUNTER 2023-11-18 08:00 | Outpatient (CLI) | payer OTHER | END 2023-11-18 23:59 | disposition home or self-care (01) | LOC: LAB.N 08:00 | PROVIDERS: ATTEND Physician Assistant Medical | DX: N39.0 Urinary tract infection, site not specified (principal) | CPT/HCPCS: 87077; 87086; 87181 ==